=== PATIENT | female | born 1985 | race Caucasian/White ===

== ENCOUNTER 2017-02-12 19:32 | Emergency (ER) | payer BC, MEDICAID ==
[~2017-02-12] VITALS: Ht 167.6 cm; Wt 90.7 kg
[2017-02-12 20:04] VITALS: BP 144/81; PULSE 111; RESP 20; TEMP 98.3; O2SAT 98
[2017-02-12] MEDS ORDERED: NACL 0.9% 1,000 ML IV ONE (20:21)
[2017-02-12] MEDS ORDERED: ONDANSETRON HCL 4 MG/2 ML VIAL IVP ONE (20:30)
[2017-02-12] MEDS ORDERED: MORPHINE 2 MG/ML INJ. SYRINGE IVP ONE (20:30)
[2017-02-12 20:43] LABS: BASOPHILS % (AUTO) 0.3 % (0.0-2.0); EOSINOPHILS # (AUTO) 0.1 K/uL (0.0-0.4); EOSINOPHILS % (AUTO) 0.5 % (0.0-4.0); HEMOGLOBIN 12.5 g/dL (12.0-16.0); LYMPHOCYTES # (AUTO) 1.6 K/uL (1.0-5.5); LYMPHOCYTES % (AUTO) 10.1 % (20.5-51.5); MEAN CORPUSCULAR HEMOGLOBIN 25 pg (27-31); MEAN CORPUSCULAR HGB CONC 32 % (32-36); MEAN CORPUSCULAR VOLUME 79 fL (79.0-98.0); MONOCYTES # (AUTO) 0.6 K/uL (0.0-1.0); MONOCYTES % (AUTO) 3.7 % (1.7-9.3); NEUTROPHILS # (AUTO) 13.3 K/uL (1.8-7.7); NEUTROPHILS % (AUTO) 85.4 % (40.0-70.0); PLATELET COUNT (AUTO) 238 K/uL (130-430); RED BLOOD CELL COUNT(AUTO) 4.93 MIL/uL (4.2-6.2); RED CELL DISTRIBUTION WIDTH 14.4 % (9.0-15.0); WHITE BLOOD COUNT (AUTO) 15.6 K/uL (4.8-10.8)
[2017-02-12 20:52] LABS: CALCIUM 9.4 mg/dL (8.4-11.0); CREATININE 0.86 mg/dL (0.55-1.30)
[2017-02-12 20:56] LABS: ALBUMIN 3.6 g/dL (3.4-4.8); TOTAL BILIRUBIN 0.5 mg/dL (0.0-1.0); TOTAL PROTEIN, SERUM 7.8 g/dL (6.4-8.3)
[2017-02-12 21:22] LABS: BILIRUBIN,URINE NEGATIVE (NEGATIVE); BLOOD, URINE 1+ (NEGATIVE); CLARITY/URINE CLEAR (CLEAR); COLOR,URINE YELLOW (YELLOW); GLUCOSE,URINE NEGATIVE (NEGATIVE); KETONES,URINE NEGATIVE (NEGATIVE); LEUKOCYTE ESTERASE ,URINE NEGATIVE (NEGATIVE); NITRITE, URINE NEGATIVE (NEGATIVE); PH,URINE 7.5 (5.0-8.0); PROTEIN URINE NEGATIVE (NEGATIVE); UROBILINOGEN,URINE 0.2 (0.2-1.0)
[2017-02-12 21:31] LABS: BACTERIA,URINE FEW /HPF (None Seen); MUCUS,URINE None Seen /LPF (None Seen); RBC,URINE 0-3 /HPF (0-3); WBC,URINE 0-3 /HPF (0-3)
[2017-02-12] MEDS ORDERED: KETOROLAC TROMETHAMINE 15 MG VIAL IVP ONE (22:45)
[2017-02-12 23:11] VITALS: BP 131/74; PULSE 86; RESP 19; TEMP 98.2; O2SAT 99
== END 2017-02-12 23:11 | disposition home or self-care (01) ==
LOC: SED 19:32
DX: N83.209 Unspecified ovarian cyst, unspecified side (principal)
CPT/HCPCS: 36415; 74176; 80053; 81000; 83690; 85025; 96361; 96374; 96375; 99285; J1885; J2270; J2405; J7030

== ENCOUNTER 2017-08-29 22:34 | Emergency (ER) | payer MEDICAID ==
[~2017-08-29] VITALS: Ht 165.1 cm; Wt 104.3 kg
[2017-08-29 22:47] VITALS: BP_SYST 113
[2017-08-30 01:22] VITALS: BP_SYST 113
== END 2017-08-30 01:22 | disposition home or self-care (01) ==
LOC: SED 22:34
DX: B34.9 Viral infection, unspecified (principal)
CPT/HCPCS: 36415; 86710; 99284

== ENCOUNTER 2017-12-13 22:58 | Emergency (ER) | payer MEDICAID ==
[~2017-12-13] VITALS: Ht 165.1 cm; Wt 90.7 kg
[2017-12-13 23:06] VITALS: BP_SYST 146
[2017-12-13 23:55] VITALS: BP_SYST 140
== END 2017-12-13 23:55 | disposition home or self-care (01) ==
LOC: SED 22:58
DX: S93.401A Sprain of unspecified ligament of right ankle, initial encounter (principal); R03.0 Elevated blood-pressure reading, without diagnosis of hypertension; W01.0XXA Fall on same level from slipping, tripping and stumbling without subsequent striking against object, initial encounter; Y93.89 Activity, other specified; Y92.89 Other specified places as the place of occurrence of the external cause; Y99.8 Other external cause status
CPT/HCPCS: 99284

== ENCOUNTER 2018-03-28 17:36 | Emergency (ER) | payer MEDICAID ==
[~2018-03-28] VITALS: Ht 152.4 cm; Wt 95.3 kg
[2018-03-28 17:41] VITALS: BP_SYST 140
[2018-03-28 19:19] VITALS: BP_SYST 134
== END 2018-03-28 19:19 | disposition home or self-care (01) ==
LOC: SED 17:36
DX: B37.2 Candidiasis of skin and nail (principal); R03.0 Elevated blood-pressure reading, without diagnosis of hypertension
CPT/HCPCS: 99283

== ENCOUNTER 2019-01-06 21:46 | Emergency (ER) | payer MEDICAID ==
[~2019-01-06] VITALS: Ht 172.7 cm; Wt 104.3 kg
[2019-01-06 21:51] VITALS: BP_SYST 119
[2019-01-07 02:32] VITALS: BP_SYST 126
== END 2019-01-07 02:32 | disposition home or self-care (01) ==
LOC: SED 21:46
DX: S90.32XA Contusion of left foot, initial encounter (principal); X58.XXXA Exposure to other specified factors, initial encounter; Y93.89 Activity, other specified; Y92.89 Other specified places as the place of occurrence of the external cause; Y99.8 Other external cause status
CPT/HCPCS: 99283

== ENCOUNTER 2019-03-10 22:08 | Emergency (ER) | payer MEDICAID ==
[~2019-03-10] VITALS: Ht 152.4 cm; Wt 113.4 kg
[2019-03-10 22:10] VITALS: BP_SYST 131
--- NOTE | 2019-03-11 01:01 | NUR ---
Patient to ER bed 2 to gown for evaluation. Side rails up. Report given to Winsome SUAREZ.
--- NOTE | 2019-03-11 01:05 | NUR ---
Patient accompanied by family complaining of multiple insect bites throughout all of extremities since yesterday. Patient reports itchiness. Pain 0/10. No other complaints/injuries per patient or as noted. Will continue to monitor.
--- NOTE | 2019-03-11 01:41 | NUR ---
ER Dr. Vasquez at bedside examining patient.
--- NOTE | 2019-03-11 01:43 | NUR ---
Note sherwin in EDM - 03/11/19 at 0256 by [email or web address] Patient given written and verbal discharge instructions and verbalizes understanding. ER discussed with patient the results and treatment provided. Patient in stable condition. ID arm band removed. Rx of Keflex given. Patient educated on pain management and to follow up with PMD in 2-3 days. Pain Scale 0/10 Opportunity for questions provided and answered. Medication side effect fact sheet provided.
[2019-03-11] MEDS ORDERED: ceFAZolin SODIUM 1 GM VIAL IM ONE (01:45)
[2019-03-11 02:14] VITALS: BP_SYST 131
--- NOTE | 2019-03-11 02:14 | NUR ---
Patient given written and verbal discharge instructions and verbalizes understanding. ER MD discussed with patient the results and treatment provided. Patient in stable condition. ID arm band removed. Rx of Keflex given. Patient educated on pain management and to follow up with PMD in 2-3 days. Pain Scale 0/10 Opportunity for questions provided and answered. Medication side effect fact sheet provided.
== END 2019-03-11 02:14 | disposition home or self-care (01) ==
LOC: SED 22:08
DX: S80.862A Insect bite (nonvenomous), left lower leg, initial encounter (principal); L03.116 Cellulitis of left lower limb; R03.0 Elevated blood-pressure reading, without diagnosis of hypertension; W57.XXXA Bitten or stung by nonvenomous insect and other nonvenomous arthropods, initial encounter; Y93.89 Activity, other specified; Y92.89 Other specified places as the place of occurrence of the external cause; Y99.8 Other external cause status
CPT/HCPCS: 96372; 99283; J0690

== ENCOUNTER 2019-05-22 19:17 | Emergency (ER) | payer MEDICAID ==
[~2019-05-22] VITALS: Ht 152.4 cm; Wt 108.9 kg
[2019-05-22 19:35] VITALS: BP_SYST 127
--- NOTE | 2019-05-22 19:35 | NUR ---
Pt ambulatoy to bed 7 for evaluation
--- NOTE | 2019-05-22 19:45 | NUR ---
Pt came to the ED for HEATH and dizziness since the AM and high blood sugar. HEATH is 6/10 and dizziness since the AM. Per pt, blood sugar was in the 600s when she checked at home. Reports R leg pain radiating down to her R foot. Upon arrival in ED, blood sguar is 488. Denies n/v/d or fever. No other complaints/injuries noted. Will cont. to monitor.
[2019-05-22] MEDS ORDERED: GLU500 PO (19:51)
[2019-05-22] MEDS ORDERED: LISNOPRIL PO (19:51)
[2019-05-22] MEDS ORDERED: SIMV10TA2 PO (19:51)
[2019-05-22] MEDS ORDERED: LISI-600 PO (19:52)
--- NOTE | 2019-05-22 20:30 | NUR ---
ER Dr. Sotomayor at bedside examining patient.
[2019-05-22] MEDS ORDERED: NACL 0.9% 1,000 ML IV ONE ×2 (20:36→22:00)
[2019-05-22] MEDS ORDERED: INSULIN REGULAR, HUMAN 10 UNITS/0.1 ML INJ IVP ONE ×2 (20:45→23:30)
[2019-05-22 21:02] LABS: BASOPHILS # (AUTO) 0.1 K/uL (0.0-0.2); BASOPHILS % (AUTO) 0.5 % (0.0-2.0); EOSINOPHILS % (AUTO) 0.3 % (0.0-4.0); HEMATOCRIT 45.5 % (36-48); HEMOGLOBIN 14.7 g/dL (12.0-16.0); LYMPHOCYTES % (AUTO) 25.9 % (20.5-51.5); MEAN CORPUSCULAR HEMOGLOBIN 27 pg (27-31); MEAN CORPUSCULAR HGB CONC 32 % (32-36); MEAN CORPUSCULAR VOLUME 82 fL (79.0-98.0); MONOCYTES # (AUTO) 0.5 K/uL (0.0-1.0); MONOCYTES % (AUTO) 3.9 % (1.7-9.3); NEUTROPHILS % (AUTO) 69.4 % (40.0-70.0); PLATELET COUNT (AUTO) 295 K/uL (130-430); RED BLOOD CELL COUNT(AUTO) 5.54 MIL/uL (4.2-6.2); RED CELL DISTRIBUTION WIDTH 15.9 % (9.0-15.0); WHITE BLOOD COUNT (AUTO) 11.5 K/uL (4.8-10.8)
[2019-05-22 21:17] LABS: CALCIUM 9.5 mg/dL (8.4-11.0); CREATININE 0.89 mg/dL (0.55-1.30); POTASSIUM 3.9 mmol/L (3.5-5.1)
--- NOTE | 2019-05-22 21:30 | NUR ---
Pt resting comfortably in bed, no signs of acute distress. Will cont. to monitor.
--- NOTE | 2019-05-22 22:30 | NUR ---
Pt resting comfortably in bed, no signs of acute distress. Will cont. to monitor.
[2019-05-22 23:03] LABS: CALCIUM 8.8 mg/dL (8.4-11.0); CREATININE 0.69 mg/dL (0.55-1.30); POTASSIUM 3.7 mmol/L (3.5-5.1)
--- NOTE | 2019-05-22 23:30 | NUR ---
Pt resting comfortably in bed, no signs of acute distress. Will cont. to monitor.
[2019-05-23 00:27] VITALS: BP_SYST 127
--- NOTE | 2019-05-23 00:27 | NUR ---
Patient given written and verbal discharge instructions and verbalizes understanding. ER MD Dr. Sotomayor discussed with patient the results and treatment provided. Patient in stable condition. ID arm band removed. IV catheter removed intact and dressing applied, no active bleeding. Patient educated on pain management and to follow up with PMD. Pain Scale 0/10. Opportunity for questions provided and answered. Medication side effect fact sheet provided.
== END 2019-05-23 00:27 | disposition home or self-care (01) ==
LOC: SED 19:17
DX: E11.65 Type 2 diabetes mellitus with hyperglycemia (principal); I10 Essential (primary) hypertension; Z79.84 Long term (current) use of oral hypoglycemic drugs; Z79.899 Other long term (current) drug therapy
CPT/HCPCS: 36415; 80048; 80053; 82962; 85025; 85379; 96361; 96374; 96376; 99283; J7030; 96375; J1815

== ENCOUNTER 2019-11-11 12:01 | Emergency (ER) | payer MEDICAID ==
[~2019-11-11] VITALS: Ht 162.6 cm; Wt 105.2 kg
[~2019-11-11 12:01] MED LIST: GLU500 PO; LISI-600 PO; SIMV10TA2 PO
[2019-11-11 12:16] VITALS: BP_SYST 100
--- NOTE | 2019-11-11 12:29 | NUR ---
Patient to ER bed 5 to gown for evaluation. Side rails up. Report given to Honey.
--- NOTE | 2019-11-11 14:14 | NUR ---
LWBS AT 1410
== END 2019-11-11 14:10 | disposition left against medical advice (07) ==
LOC: SED 12:01
DX: R07.89 Other chest pain (principal); M25.441 Effusion, right hand; Z53.21 Procedure and treatment not carried out due to patient leaving prior to being seen by health care provider

== ENCOUNTER 2020-03-13 15:01 | Emergency (ER) | payer MEDICAID ==
[~2020-03-13] VITALS: Ht 152.4 cm; Wt 100.7 kg
[2020-03-13 15:15] VITALS: BP_SYST 132
[2020-03-13] MEDS ORDERED: NACL 0.9% 1,000 ML IV ONE (15:45)
[2020-03-13 16:10] LABS: CALCIUM 8.8 mg/dL (8.4-11.0); CREATININE 0.79 mg/dL (0.55-1.30); POTASSIUM 3.8 mmol/L (3.5-5.1)
[2020-03-13 16:12] LABS: BASOPHILS # (AUTO) 0.1 K/uL (0.0-0.2); BASOPHILS % (AUTO) 0.8 % (0.0-2.0); EOSINOPHILS % (AUTO) 0.3 % (0.0-4.0); HEMATOCRIT 41.5 % (36-48); HEMOGLOBIN 13.3 g/dL (12.0-16.0); LYMPHOCYTES # (AUTO) 2.7 K/uL (1.0-5.5); LYMPHOCYTES % (AUTO) 23.7 % (20.5-51.5); MEAN CORPUSCULAR HEMOGLOBIN 26 pg (27-31); MEAN CORPUSCULAR HGB CONC 32 % (32-36); MEAN CORPUSCULAR VOLUME 82 fL (79.0-98.0); MONOCYTES # (AUTO) 0.4 K/uL (0.0-1.0); MONOCYTES % (AUTO) 3.4 % (1.7-9.3); NEUTROPHILS # (AUTO) 8.1 K/uL (1.8-7.7); NEUTROPHILS % (AUTO) 71.8 % (40.0-70.0); PLATELET COUNT (AUTO) 270 K/uL (130-430); RED BLOOD CELL COUNT(AUTO) 5.05 MIL/uL (4.2-6.2); RED CELL DISTRIBUTION WIDTH 15.1 % (9.0-15.0); WHITE BLOOD COUNT (AUTO) 11.3 K/uL (4.8-10.8)
[2020-03-13 16:14] LABS: ALBUMIN 3.5 g/dL (3.4-4.8); TOTAL BILIRUBIN 0.5 mg/dL (0.0-1.0)
[2020-03-13 18:22] VITALS: BP_SYST 132
== END 2020-03-13 18:22 | disposition home or self-care (01) ==
LOC: SED 15:01
DX: E11.65 Type 2 diabetes mellitus with hyperglycemia (principal); R42 Dizziness and giddiness; I10 Essential (primary) hypertension
CPT/HCPCS: 36415; 80053; 81002; 81025; 82962; 83036; 85025; 96360; 99283; J7030

== ENCOUNTER 2020-03-15 02:47 | Emergency (ER) | payer MEDICAID ==
[~2020-03-15] VITALS: Ht 167.6 cm; Wt 108.9 kg
[2020-03-15 03:22] VITALS: BP_SYST 136
--- NOTE | 2020-03-15 03:27 | NUR ---
Patient triaged and placed in waiting room. VSS and patient appears in no acute distress at this time. Accompanied by SELF, awaiting available bed, and MD notified of need for MSE.
--- NOTE | 2020-03-15 05:15 | NUR ---
Patient to ER bed CHAIR 2 to gown for evaluation.
[2020-03-15] MEDS ORDERED: MECLIZINE HCL 25 MG TABLET (ANITVERT) PO ONE (05:30)
--- NOTE | 2020-03-15 05:30 | NUR ---
ER Dr. SRINIVASAN at bedside examining patient.
--- NOTE | 2020-03-15 06:00 | NUR ---
Pt to bed 1
--- NOTE | 2020-03-15 06:15 | NUR ---
Pt presents to the ER for dizziness and headache after dose of insulin. Pt took insulin at 10 pm and symptoms started after insulin dose. Pt reports dizziness decreasing when not moving head. Denies JASWINDER CP.
[2020-03-15 06:48] LABS: BASOPHILS % (AUTO) 0.3 % (0.0-2.0); EOSINOPHILS % (AUTO) 0.4 % (0.0-4.0); HEMOGLOBIN 12.5 g/dL (12.0-16.0); LYMPHOCYTES # (AUTO) 2.6 K/uL (1.0-5.5); LYMPHOCYTES % (AUTO) 25.4 % (20.5-51.5); MEAN CORPUSCULAR HEMOGLOBIN 27 pg (27-31); MEAN CORPUSCULAR HGB CONC 33 % (32-36); MEAN CORPUSCULAR VOLUME 81 fL (79.0-98.0); MONOCYTES # (AUTO) 0.3 K/uL (0.0-1.0); NEUTROPHILS # (AUTO) 7.4 K/uL (1.8-7.7); NEUTROPHILS % (AUTO) 70.9 % (40.0-70.0); PLATELET COUNT (AUTO) 206 K/uL (130-430); RED BLOOD CELL COUNT(AUTO) 4.67 MIL/uL (4.2-6.2); WHITE BLOOD COUNT (AUTO) 10.4 K/uL (4.8-10.8)
[2020-03-15 06:53] LABS: CALCIUM 9.1 mg/dL (8.4-11.0); CREATININE 0.88 mg/dL (0.55-1.30); POTASSIUM 3.6 mmol/L (3.5-5.1)
[2020-03-15 07:07] LABS: ALBUMIN 3.4 g/dL (3.4-4.8); TOTAL BILIRUBIN 0.4 mg/dL (0.0-1.0)
--- NOTE | 2020-03-15 07:13 | NUR ---
Report given to DANIELA Arnold.
--- NOTE | 2020-03-15 07:16 | NUR ---
Patient helped to restroom.
--- NOTE | 2020-03-15 07:32 | NUR ---
Patient moved to bed 3.
[2020-03-15] MEDS ORDERED: INSU100I26 SQ (07:37)
[2020-03-15] MEDS ORDERED: METF-510 PO (07:37)
--- NOTE | 2020-03-15 07:37 | NUR ---
Medication reconciliation completed with information provided by patient. Any prior medication reconciliation on file was reviewed and corrected.
[2020-03-15 07:44] LABS: BILIRUBIN,URINE NEGATIVE (NEGATIVE); BLOOD, URINE 1+ (NEGATIVE); CLARITY/URINE CLEAR (CLEAR); COLOR,URINE YELLOW (YELLOW); GLUCOSE,URINE 2+ (NEGATIVE); KETONES,URINE TRACE (NEGATIVE); LEUKOCYTE ESTERASE ,URINE NEGATIVE (NEGATIVE); NITRITE, URINE NEGATIVE (NEGATIVE); PROTEIN URINE NEGATIVE (NEGATIVE); UROBILINOGEN,URINE 0.2 (0.2-1.0)
--- NOTE | 2020-03-15 08:01 | NUR ---
Patient transported to radiology via wheelchair, accompanied by analytical technician.
[2020-03-15 08:17] LABS: BACTERIA,URINE FEW /HPF (None Seen); MUCUS,URINE 1+ /LPF (None Seen); WBC,URINE 0-3 /HPF (0-3)
[2020-03-15 08:46] VITALS: BP_SYST 132
--- NOTE | 2020-03-15 08:47 | NUR ---
Patient given written and verbal discharge instructions and verbalizes understanding. ER MD discussed with patient the results and treatment provided. Patient in stable condition. ID arm band removed. Rx of antivert given. Patient educated on pain management and to follow up with PMD. Pain Scale 0/10. Opportunity for questions provided and answered. Medication side effect fact sheet provided.
== END 2020-03-15 08:46 | disposition home or self-care (01) ==
LOC: SED 02:47
DX: R42 Dizziness and giddiness (principal); I10 Essential (primary) hypertension; E11.9 Type 2 diabetes mellitus without complications
CPT/HCPCS: 36415; 70450; 80053; 81000; 81025; 82962; 84702; 85025; 99284; J8597

== ENCOUNTER 2020-06-10 22:51 | Emergency (ER) | payer MEDICAID ==
[~2020-06-10] VITALS: Ht 162.6 cm; Wt 104.3 kg
[~2020-06-10 22:51] MED LIST changes: -GLU500 PO; +INSU100I26 SQ; -LISI-600 PO; +METF-510 PO; -SIMV10TA2 PO
[2020-06-10 23:17] VITALS: BP_SYST 133
[2020-06-11 00:33] LABS: BASOPHILS # (AUTO) 0.4 K/uL (0.0-0.2); EOSINOPHILS % (AUTO) 0.2 % (0.0-4.0); HEMATOCRIT 42.9 % (36-48); HEMOGLOBIN 13.9 g/dL (12.0-16.0); LYMPHOCYTES # (AUTO) 1.9 K/uL (1.0-5.5); LYMPHOCYTES % (AUTO) 18.4 % (20.5-51.5); MEAN CORPUSCULAR HEMOGLOBIN 27 pg (27-31); MEAN CORPUSCULAR HGB CONC 32 % (32-36); MEAN CORPUSCULAR VOLUME 82 fL (79.0-98.0); MONOCYTES # (AUTO) 0.3 K/uL (0.0-1.0); MONOCYTES % (AUTO) 3.2 % (1.7-9.3); NEUTROPHILS # (AUTO) 7.9 K/uL (1.8-7.7); NEUTROPHILS % (AUTO) 74.2 % (40.0-70.0); PLATELET COUNT (AUTO) 264 K/uL (130-430); RED BLOOD CELL COUNT(AUTO) 5.25 MIL/uL (4.2-6.2); WHITE BLOOD COUNT (AUTO) 10.6 K/uL (4.8-10.8)
[2020-06-11 00:52] LABS: CREATININE 0.92 mg/dL (0.55-1.30)
[2020-06-11 00:54] LABS: ALBUMIN 3.6 g/dL (3.4-4.8); TOTAL BILIRUBIN 0.5 mg/dL (0.0-1.0)
[2020-06-11] MEDS ORDERED: INSULIN REGULAR, HUMAN 10 UNITS/0.1 ML INJ IVP ONE (01:15)
[2020-06-11] MEDS ORDERED: NACL 0.9% 1,000 ML IV ONE ×2 (02:00)
[2020-06-11 03:10] VITALS: BP_SYST 133
== END 2020-06-11 03:10 | disposition home or self-care (01) ==
LOC: SED 22:51
DX: E11.65 Type 2 diabetes mellitus with hyperglycemia (principal); R35.8 Other polyuria; I10 Essential (primary) hypertension; E11.9 Type 2 diabetes mellitus without complications; Z79.899 Other long term (current) drug therapy; Z79.4 Long term (current) use of insulin
CPT/HCPCS: 36415; 80053; 82962; 85025; 96361; 96374; 99283; J1815; J7030; J7120

== ENCOUNTER 2020-06-26 23:44 | Emergency (ER) | payer MEDICAID ==
[~2020-06-26] VITALS: Ht 152.4 cm; Wt 113.4 kg
[2020-06-26 23:55] VITALS: BP_SYST 118
[2020-06-27] MEDS ORDERED: KETOROLAC TROMETHAMINE 30 MG VIAL IM ONE (00:30)
[2020-06-27 01:08] VITALS: BP_SYST 118
== END 2020-06-27 01:08 | disposition home or self-care (01) ==
LOC: SED 23:44
DX: S93.492A Sprain of other ligament of left ankle, initial encounter (principal); E11.9 Type 2 diabetes mellitus without complications; Z79.899 Other long term (current) drug therapy; X50.9XXA Other and unspecified overexertion or strenuous movements or postures, initial encounter; Y93.89 Activity, other specified; Y92.89 Other specified places as the place of occurrence of the external cause; Y99.8 Other external cause status; I10 Essential (primary) hypertension
CPT/HCPCS: 73610; 96372; 99283; J1885

== ENCOUNTER 2020-09-04 13:01 | Emergency (ER) | payer MEDICAID, SELFPAY ==
--- NOTE | 2020-09-04 13:20 | NUR ---
LEFT BEFORE BEING TRIAGED
== END 2020-09-04 13:20 | disposition left against medical advice (07) ==
LOC: SED 13:01
DX: R05 Cough (principal); Z53.21 Procedure and treatment not carried out due to patient leaving prior to being seen by health care provider